=== PATIENT | male | born 1980 | race Caucasian/White ===

== ENCOUNTER 2017-05-27 14:55 | Inpatient (IN) | payer MEDICAID, OTHER ==
[~2017-05-27] VITALS: Ht 182.9 cm; Wt 73.1 kg
[~2017-05-27 14:55] MED LIST: AA/A14DR2 EACH EAR; ANTIBIOTIC; CEFP500T4 PO; CIPR500T78 PO; HYDR-1231 PO; IBUP800T26 PO; NAPR-243 PO; TRM50T PO
[2017-05-27] MEDS ORDERED: NS IV 1000 ML 1,000 ML IV ONE (16:13)
--- OUTSIDE RECORDS SUMMARY | 2017-05-27 16:18 | XMS REPORT ---
Author Author ZAYDA ROSE [facility] eClinicalWorks Address Unknown Phone Unavailable Care Team Providers Care Pedal Assembler Name Role Phone ZAYDA ROSE CP Unavailable Allergies No Known Allergies Problems Problem Type Condition ICD-9 Code Onset Dates Condition Status Problem Nondependent alcohol abuse, unspecified drunkenness 305.00 Active Problem Migraine, unspecified without mention of intractable migraine without mention of status migrainosus 346.90 Active Problem Depressive disorder, not elsewhere classified 311 Active Problem Unspecified part of closed fracture of clavicle 810.00 Active Problem Schizoaffective disorder, unspecified 295.70 Active Problem Unspecified orchitis and epididymitis 604.90 Active Problem Acute bronchitis 466.0 Active Problem Nondependent tobacco use disorder 305.1 Active Problem Combinations of drug dependence excluding opioid type drug, 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 Active Problem Contact dermatitis and other eczema due to solvents 692.2 Active Assessment No condition on axis III V71.09 Active Assessment Substance dependence 304.90 Active Assessment Substance abuse 305.90 Active Assessment No condition on [place] II V71.09 Active Problem Pain in joint, shoulder region 719.41 Active Assessment Generalized anxiety disorder 300.02 Active Problem Anxiety state, unspecified 300.00 Active Medications No Known Medications Procedures Procedure Coding System Code Date Psych diagnostic evaluation, new patient CPT-4 52343 Feb 21, 2015 Results No Known Results Summary Purpose eClinicalWorks Submission
--- OUTSIDE RECORDS SUMMARY | 2017-05-27 16:19 | XMS REPORT ---
Author Author DARLYN PIZARRO [facility] eClinicalWorks Address Unknown Phone Unavailable Care Team Providers Care Student Support Services Director Name Role Phone DARLYN PIZARRO CP Unavailable Allergies No Known Allergies Problems Problem Type Condition ICD-9 Code Onset Dates Condition Status Problem Nondependent alcohol abuse, unspecified drunkenness 305.00 Active Problem Migraine, unspecified without mention of intractable migraine without mention of status migrainosus 346.90 Active Problem Depressive disorder, not elsewhere classified 311 Active Problem Pain in joint, shoulder region 719.41 Active Problem Anxiety state, unspecified 300.00 Active Problem Unspecified part of closed fracture of clavicle 810.00 Active Problem Schizoaffective disorder, unspecified 295.70 Active Problem Unspecified orchitis and epididymitis 604.90 Active Problem Acute bronchitis 466.0 Active Problem Nondependent tobacco use disorder 305.1 Active Problem Combinations of drug dependence excluding opioid type drug, 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
--- OUTSIDE RECORDS SUMMARY | 2017-05-27 16:19 | XMS REPORT ---
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 Active Problem Anger R45.4 Active Assessment Conduct disorder, unspecified F91.9 Active Problem Tobacco abuse Z72.0 Active Problem Anxiety F41.9 Active Problem Unspecified orchitis and epididymitis 604.90 Active Problem Unspecified part of closed fracture of clavicle 810.00 Active Problem Hx of drug abuse Z87.898 Active Problem Alcohol abuse F10.10 Active Assessment Anxiety disorder F41.9 Active Problem Pain in joint, shoulder region 719.41 Active Assessment Impulse disorder, unspecified F63.9 Active Assessment Substance addiction F19.20 Active Problem Depressive disorder, not elsewhere classified 311 Active Problem Migraine, unspecified without mention of intractable migraine without mention of status migrainosus 346.90 Active Problem Anxiety state, unspecified 300.00 Active Problem Nondependent tobacco use disorder 305.1 Active Problem Nondependent alcohol abuse, unspecified drunkenness 305.00 Active Problem Acute bronchitis 466.0 Active Medications No Known Medications Procedures Procedure Coding System Code Date Psychotherapy, patient &/family, 30 minutes, established patient CPT-4 73825 Jul 04, 2015 Results No Known Results Summary Purpose eClinicalWorks Submission
--- OUTSIDE RECORDS SUMMARY | 2017-05-27 16:19 | XMS REPORT ---
Author Author DARLYN PIZARRO Organization eClinicalWorks Address Unknown Phone Unavailable Care Team Providers Care Community Outreach Coordinator Name Role Phone DARLYN PIZARRO CP Unavailable [...] eczema due to solvents 692.2 Active Medications No Known Medications Results No Known Results Summary Purpose eClinicalWorks Submission
--- OUTSIDE RECORDS SUMMARY | 2017-05-27 16:19 | XMS REPORT ---
Author Author DARLYN PIZARRO [facility] eClinicalWorks Address Unknown Phone Unavailable Care Team Providers Care Entry Level Project Engineer Name Role Phone DARLYN PIZARRO CP Unavailable Allergies, Adverse Reactions, Alerts Substance Reaction Event Type Penicillin V Potassium Info Not Available Drug Allergy Problems Problem Type Condition ICD-9 Code Onset [...] eczema due to solvents 692.2 Active Assessment Onychomycosis 110.1 Active Assessment Tinea barbae 110.0 Active Problem Pain in joint, shoulder region 719.41 Active Assessment High risk medication use V58.69 Active Problem Anxiety state, unspecified 300.00 Active Medications No Known Medications Procedures Procedure Coding System Code Date HEPATIC FUNCTION PANEL CPT-4 40400 Mar 21, 2015 VENIPUNCT, ROUTINE* CPT-4 20678 Mar 21, 2015 Office Visit, Est Pt., Level 3 CPT-4 16434 Mar 21, 2015 Vital Signs Date/Time: Mar 21, 2015 Temperature 98.0 F Weight 183.0 lbs Height 72 in BMI 24.82 Index Blood Pressure Diastolic 60 mmHg Blood Pressure Systolic 100 mmHg Cardiac Monitoring Heart Rate 90 bpm Results Name Result Date Reference Range Unit Abnormality Flag LIVER PANEL (LFT) ----ALT (SGPT) 52 [id number] 0-44 IU/L H ----AST (SGOT) 22 [id number] 0-40 IU/L ----Alkaline Phosphatase, S 62 [id number] 39-117 IU/L ----Protein, Total, Serum 7.0 20150321 6.0-8.5 g/dL ----Albumin, Serum 4.4 20150321 3.5-5.5 g/dL ----Bilirubin, Total <0.2 20150321 0.0-1.2 mg/dL ----Bilirubin, Direct 0.06 [id number] 0.00-0.40 mg/dL ROUTINE VENIPUNCTURE Summary Purpose eClinicalWorks Submission
--- OUTSIDE RECORDS SUMMARY | 2017-05-27 16:20 | XMS REPORT | Continuity of Care Document ---
Author Author [facility] Organization [facility] Address Unknown Phone Unavailable Allergies Active Description Code Type Severity Reaction Onset Reported/Identified Relationship to Patient Clinical Status Yes FISH FISH Moderate HIVES 11/29/2010 Yes Penicillins [id number] Drug Allergy Severe HIVES 11/29/2010 Yes codeine Drug Allergy N/A N/A 04/04/2011 Yes Penicillins Drug Allergy N/A N/A 04/04/2011 Medications Problems Date Dx Coded Attending Type Code Diagnosis Diagnosed By 04/04/2011 SHANNAN PENA APRN 382.9 Unspecified Otitis Media 04/04/2011 NASEEM LINDSAY APRN L 382.9 Unspecified Otitis Media 04/04/2011 SHAJI WOODARD DO 382.9 Unspecified Otitis Media 04/04/2011 NASEEM LINDSAY APRN L 382.9 Unspecified Otitis Media 04/04/2011 NASEEM LINDSAY APRN L 382.9 Unspecified Otitis Media 04/04/2011 KOMAL RUFFIN LCPC 382.9 Unspecified Otitis Media 04/04/2011 VIVI PHD, GABBY Caban 382.9 Unspecified Otitis Media 09/01/2011 SHANNAN PENA APRN 692.2 Contact Dermatitis Due To Solvents 09/01/2011 NASEEM LINDSAY APRN 692.2 Contact Dermatitis Due To Solvents 09/01/2011 SHAJI WOODARD DO 692.2 Contact Dermatitis Due To Solvents 09/01/2011 NASEEM LINDSAY APRN 692.2 Contact Dermatitis Due To Solvents 09/01/2011 NASEEM LINDSAY APRN 692.2 Contact Dermatitis Due To Solvents 09/01/2011 KOMAL RUFFIN LCPC 692.2 Contact Dermatitis Due To Solvents 09/01/2011 VIVI HSIEH, GABBY Caban 692.2 Contact Dermatitis Due To Solvents 04/01/2012 SHANNAN PENA APRN 305.1 TOBACCO ABUSE 04/01/2012 BECKY SOCIAL INSURANCE SPECIALIST, SHANNAN S 346.90 MIGRAINE HEADACHE 04/01/2012 BECKY SOCIAL INSURANCE SPECIALIST, SHANNAN S 466.0 ACUTE BRONCHITIS 04/01/2012 MADL SOCIAL INSURANCE SPECIALIST, NASEEM L 305.1 TOBACCO ABUSE 04/01/2012 MADL SOCIAL INSURANCE SPECIALIST, NASEEM L 346.90 MIGRAINE HEADACHE 04/01/2012 MADL SOCIAL INSURANCE SPECIALIST, NASEEM L 466.0 ACUTE BRONCHITIS 04/01/2012 WOODARD DO, SHAJI K 305.1 TOBACCO ABUSE 04/01/2012 WOODARD DO, SHAJI K 346.90 MIGRAINE HEADACHE 04/01/2012 WOODARD DO, SHAJI K 466.0 ACUTE BRONCHITIS 04/01/2012 MADL SOCIAL INSURANCE SPECIALIST, NASEEM L 305.1 TOBACCO ABUSE 04/01/2012 MADL SOCIAL INSURANCE SPECIALIST, NASEEM L 346.90 MIGRAINE HEADACHE 04/01/2012 MADL SOCIAL INSURANCE SPECIALIST, NASEEM L 466.0 ACUTE BRONCHITIS 04/01/2012 MADL SOCIAL INSURANCE SPECIALIST, NASEEM L 305.1 TOBACCO ABUSE 04/01/2012 MADL SOCIAL INSURANCE SPECIALIST, NASEEM L 346.90 MIGRAINE HEADACHE 04/01/2012 MADL SOCIAL INSURANCE SPECIALIST, NASEEM L 466.0 ACUTE BRONCHITIS 04/01/2012 KOMAL RUFFIN LCPC B 305.1 TOBACCO ABUSE 04/01/2012 KOMAL RUFFIN LCPC B 346.90 MIGRAINE HEADACHE 04/01/2012 KOMAL RUFFIN LCPC B 466.0 ACUTE BRONCHITIS 04/01/2012 VIVI PHD, GABBY Caban 305.1 TOBACCO ABUSE 04/01/2012 VIVI PHD, GABBY Caban 346.90 MIGRAINE HEADACHE 04/01/2012 VIVI PHD, GABBY Caban 466.0 ACUTE BRONCHITIS 07/20/2013 BECKY SOCIAL INSURANCE SPECIALIST, SHANNAN S 604.90 ORCHITIS AND EPIDIDYMITIS UNSPECIFIED 07/20/2013 MADL SOCIAL INSURANCE SPECIALIST, NASEEM L 604.90 ORCHITIS AND EPIDIDYMITIS UNSPECIFIED 07/20/2013 WOODARD DO, SHAJI K 604.90 ORCHITIS AND EPIDIDYMITIS UNSPECIFIED 07/20/2013 MADL SOCIAL INSURANCE SPECIALIST, NASEEM L 604.90 ORCHITIS AND EPIDIDYMITIS UNSPECIFIED 07/20/2013 MADL SOCIAL INSURANCE SPECIALIST, NASEEM L 604.90 ORCHITIS AND EPIDIDYMITIS UNSPECIFIED 07/20/2013 KOMAL RUFFIN LCPC B 604.90 ORCHITIS AND EPIDIDYMITIS UNSPECIFIED 07/20/2013 GABBY TRINIDAD PHD 604.90 ORCHITIS AND EPIDIDYMITIS UNSPECIFIED 01/19/2014 MAEVE LINDSAY APRNA L 810.00 CLOSED FRACTURE OF CLAVICLE UNSPECIFIED PART 01/19/2014 SHAJI WOODARD DO K 810.00 CLOSED FRACTURE OF CLAVICLE UNSPECIFIED PART 01/19/2014 ABDIFATAHL SOCIAL INSURANCE SPECIALIST, NASEEM L 810.00 CLOSED FRACTURE OF CLAVICLE UNSPECIFIED PART 01/19/2014 ABDIFATAHL SOCIAL INSURANCE SPECIALIST, NASEEM L 810.00 CLOSED FRACTURE OF CLAVICLE UNSPECIFIED PART 01/19/2014 KOMAL RUFFIN LCPC 810.00 CLOSED FRACTURE OF CLAVICLE UNSPECIFIED PART 01/19/2014 GABBY TRINIDAD PHD 810.00 CLOSED FRACTURE OF CLAVICLE UNSPECIFIED PART 04/07/2014 MAEVE LINDSAY APRNA L 719.41 PAIN IN JOINT INVOLVING SHOULDER REGION 04/07/2014 NASEEM LINDSAY APRN L 719.41 PAIN IN JOINT INVOLVING SHOULDER REGION 04/07/2014 KOMAL RUFFIN LCPC 719.41 PAIN IN JOINT INVOLVING SHOULDER REGION 04/07/2014 GABBY TRINIDAD PHD 719.41 PAIN IN JOINT INVOLVING SHOULDER REGION 06/02/2014 KOMAL RUFFIN LCPC 300.00 AN ANXIETY UNSPEC 06/02/2014 KOMAL RUFFIN LCPC 305.00 NONDEPENDENT ALCOHOL ABUSE UNSPECIFIED DRINKING BEHAVIOR 06/02/2014 KOMAL RUFFIN LCPC 311 DEPRESSIVE DISORDER NOS 06/02/2014 GABBY TRINIDAD PHD 300.00 AN ANXIETY UNSPEC 06/02/2014 GABBY TRINIDAD PHD 305.00 NONDEPENDENT ALCOHOL ABUSE UNSPECIFIED DRINKING BEHAVIOR 06/02/2014 GABBY TRINIDAD PHD 311 DEPRESSIVE DISORDER NOS 07/24/2014 GABBY TRINIDAD PHD 295.70 P SCHIZO AFFECTIVE 07/24/2014 GABBY TRINIDAD PHD 304.80 SA POLYSUB DEP Procedures Code Description [place] [address] UA W/ CULTURE IF INDICATED 07/20/2013 29672 XRAY CLAVICLE, LEFT 04/07/2014 83173 XRAY SHOULDER LEFT COMP 2 VIEWS 04/07/2014 ORTHOPEDI IBRAHIMA JEAN-BAPTISTE 04/07/2014 45597 PSYCH DIAGNOSTIC EVALUATION 06/05/2014 60865 PSYTX PT&/FAMILY 30 MINUTES 07/24/2014 Results Encounters ACCT No. Visit Date/Time Discharge Status Pt. Type Provider Facility Loc./Unit Complaint [id number] 01/10/2014 13:28:00 2013 13:40:00 DIS Emergency [id number] 01/07/2014 12:07:00 2013 12:28:00 DIS Emergency [id number] 09/17/2013 10:15:00 2013 23:59:59 CLS Outpatient [id number] 07/10/2013 17:14:00 2012 18:35:00 DIS Emergency [id number] 05/27/2017 14:59:00 ACT Emergency CASA TIJERINA , URVASHI [facility] ER BOTH HANDS PAIN/SWELLING [id number] 07/24/2014 07:56:00 07/24/2014 23: 59:59 CLS Outpatient VIVI HSIEH, GABBY Caban [id number] 06/02/2014 12:44:00 06/02/2014 23: 59:59 CLS Outpatient KOMAL RUFFIN LCPC [id number] 04/07/2014 13:37:00 04/07/2014 23: 59:59 CLS Outpatient NASEEM LINDSAY APRN [id number] 04/07/2014 13:37:00 04/07/2014 23: 59:59 CLS Outpatient NASEEM LINDSAY APRN [id number] 02/06/2014 17:21:00 02/06/2014 23: 59:59 CLS Outpatient SHAJI WOODARD DO [id number] 01/19/2014 11:22:00 01/19/2014 23: 59:59 CLS Outpatient NASEEM LINDSAY APRN [id number] 07/20/2013 13:11:00 07/20/2013 23: 59:59 CLS Outpatient SHANNAN PENA APRN
--- OUTSIDE RECORDS SUMMARY | 2017-05-27 16:20 | XMS REPORT ---
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 Problem Anger R45.4 Active Assessment Elevated liver enzymes R74.8 Active Problem Tobacco abuse Z72.0 Active Assessment Physical exam Z00.00 Active Assessment 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 Problem Anxiety F41.9 Active Problem Unspecified orchitis and epididymitis 604.90 Active Problem Unspecified part of closed fracture of clavicle 810.00 Active Problem Hx of drug abuse Z87.898 Active Problem Alcohol abuse F10.10 Active Assessment Anxiety state, unspecified 300.00 Active Problem Pain in joint, shoulder region 719.41 Active Assessment Tobacco abuse Z72.0 Active Assessment Depressive disorder, not elsewhere classified 311 Active Problem Depressive disorder, not elsewhere classified 311 Active Problem Migraine, unspecified without mention of intractable migraine without mention of status migrainosus 346.90 Active Problem Anxiety state, unspecified 300.00 Active Problem Nondependent tobacco use disorder 305.1 Active Problem Nondependent alcohol abuse, unspecified drunkenness 305.00 Active Problem Acute bronchitis 466.0 Active Medications Medication Code System Code Instructions Start Date End Date Status Dosage BusPIRone HCl [facility] [address]-58 10 MG Orally Once a day Jun 22, 2015 1 tablet Procedures Procedure Coding System Code Date Office Visit, Est Pt., Level 3 CPT-4 21568 Jul 24, 2015 Vital Signs Date/Time: Jul 24, 2015 Temperature 98.1 F Weight 196.3 lbs Height 72 in BMI 26.62 Index Blood Pressure Diastolic 60 mmHg Blood Pressure Systolic 118 mmHg Cardiac Monitoring Heart Rate 76 bpm Results No Known Results Summary Purpose eClinicalWorks Submission
--- OUTSIDE RECORDS SUMMARY | 2017-05-27 16:20 | XMS REPORT ---
Author Author ALEJANDRA VÁSQUEZ Organization eClinicalWorks Address Unknown Phone Unavailable Care Team Providers Care Surveyor Geophysical Prospecting Name Role Phone ALEJANDRA VÁSQUEZ Unavailable Allergies No Known Allergies Problems Problem Type Condition Code Onset Dates Condition Status Problem Nondependent [...]
--- OUTSIDE RECORDS SUMMARY | 2017-05-27 16:20 | XMS REPORT ---
Author Author RODRÍGUEZ MARSH eClinicalWorks Address Unknown Phone Unavailable Care Team Providers Care Assistant Elementary Teacher Name Role Phone RODRÍGUEZ MARSH CP Unavailable [...] 304.80 Active Problem Anger R45.4 Active Assessment Hx of drug abuse Z87.898 Active Problem Tobacco abuse Z72.0 Active Assessment Alcohol abuse F10.10 Active Problem Anxiety F41.9 Active Problem Unspecified orchitis and epididymitis 604.90 Active Problem Unspecified part of closed fracture of clavicle 810.00 Active Problem Hx of drug abuse Z87.898 Active Problem Alcohol abuse F10.10 Active Assessment Anxiety F41.9 Active Problem Pain in joint, shoulder region 719.41 Active Assessment Tobacco abuse Z72.0 Active Assessment Anger R45.4 Active Problem Depressive disorder, not elsewhere classified 311 Active Problem Migraine, unspecified without mention of intractable migraine without mention of status migrainosus 346.90 Active Problem Anxiety state, unspecified 300.00 Active Problem Nondependent tobacco use disorder 305.1 Active Problem Nondependent alcohol abuse, unspecified drunkenness 305.00 Active Problem Acute bronchitis 466.0 Active Medications Medication Code System Code Instructions Start Date End Date Status Dosage Clonidine HCl [facility] [address]-95 0.1 MG Orally Once a day Jun 22, 2015 1 tablet as needed for anxiety BusPIRone HCl [facility] [address]-50 5 MG Orally Twice a day Jun 22, 2015 1 tablet Procedures Procedure Coding System Code Date Office Visit, Est Pt., Level 3 CPT-4 73610 Jun 22, 2015 Vital Signs Date/Time: Jun 22, 2015 Temperature 98.2 F Weight 189.2 lbs Height 72 in BMI 25.66 Index Blood Pressure Diastolic 72 mmHg Blood Pressure Systolic 122 mmHg Cardiac Monitoring Heart Rate 76 bpm Results No Known Results Summary Purpose eClinicalWorks Submission
--- OUTSIDE RECORDS SUMMARY | 2017-05-27 16:20 | XMS REPORT ---
Author Author ZAYDA ROSE [facility] eClinicalWorks Address Unknown Phone Unavailable Care Team Providers Care Power Shovel Engineer Name Role Phone ZAYDA ROSE CP Unavailable [...] abuse 304.80 Active Problem Anger R45.4 Active Problem Tobacco abuse Z72.0 Active Problem Anxiety F41.9 Active Problem Unspecified orchitis and epididymitis 604.90 Active Problem Unspecified part of closed fracture of clavicle 810.00 Active Problem Hx of drug abuse Z87.898 Active Problem Alcohol abuse F10.10 Active Assessment Social anxiety disorder F40.10 Active Problem Pain in joint, shoulder region 719.41 Active Assessment Substance abuse F19.10 Active Assessment Generalized anxiety disorder F41.1 Active Problem Depressive disorder, not elsewhere classified 311 Active Problem Migraine, unspecified without mention of intractable migraine without mention of status migrainosus 346.90 Active Problem Anxiety state, unspecified 300.00 Active Problem Nondependent tobacco use disorder 305.1 Active Problem Nondependent alcohol abuse, unspecified drunkenness 305.00 Active Problem Acute bronchitis 466.0 Active Medications No Known Medications Procedures Procedure Coding System Code Date Psychotherapy, patient &/family, 45 minutes, established patient CPT-4 25974 Jun 22, 2015 Results No Known Results Summary Purpose eClinicalWorks Submission
[2017-05-27 16:21] LABS: BASOPHILS % (AUTO) 0 % (0-10); EOSINOPHILS # (AUTO) 0.2 10^3/uL (0.0-0.3); EOSINOPHILS % (AUTO) 1 % (0-10); LYMPHOCYTES # (AUTO) 1.7 X 10^3 (1.0-4.0); LYMPHOCYTES % (AUTO) 14 % (12-44); MEAN CORPUSCULAR HEMOGLOBIN 32 PG (25-34); MEAN CORPUSCULAR HGB CONC 34 G/DL (32-36); MEAN CORPUSCULAR VOLUME 94 FL (80-99); MEAN PLATELET VOLUME 9.6 FL (7.4-10.4); MONOCYTES % (AUTO) 8 % (0-12); NEUTROPHILS # (AUTO) 9.1 X 10^3 (1.8-7.8); NEUTROPHILS % (AUTO) 76 % (42-75); PLATELET COUNT 247 10^3/uL (130-400); RED BLOOD COUNT 3.88 10^6/uL (4.35-5.85); RED CELL DISTRIBUTION WIDTH 13.9 % (10.0-14.5)
[2017-05-27 16:39] LABS: ALANINE AMINOTRANSFERASE 41 U/L (0-55); ALCOHOL < 10 MG/DL (<10); ANION GAP 8 MMOL/L (5-14); ASPARTATE AMINO TRANSFERASE 33 U/L (5-34); BILIRUBIN,TOTAL 0.8 MG/DL (0.1-1.0); BLOOD UREA NITROGEN 11 MG/DL (7-18); BUN/CREATININE RATIO 15; CARBON DIOXIDE 23 MMOL/L (21-32); CHLORIDE 105 MMOL/L (98-107); CREATININE SERUM 0.75 MG/DL (0.60-1.30); GFR ESTIMATED > 60; GLUCOSE 105 MG/DL (70-105); POTASSIUM 3.7 MMOL/L (3.6-5.0); SODIUM 136 MMOL/L (135-145); TOTAL PROTEIN 7.4 GM/DL (6.4-8.2)
[2017-05-27] MEDS ORDERED: ACETAMINOPHEN 500 MG TAB (TYLENOL) PO ONE (17:00)
--- NOTE | 2017-05-27 17:08 | Diagnostic Imaging Report ---
Portable upright radiograph of the chest. INDICATION: Bilateral hand pain. Malaise. Shortness of breath. FINDINGS: The lungs are clear. The heart size is normal. No effusion or pneumothorax. The mediastinum and kodi appear unremarkable. IMPRESSION: Unremarkable exam. Dictated by: Dictated on workstation # [id number]
[2017-05-27 17:18] LABS: BILIRUBIN,URINE NEGATIVE (NEGATIVE); KETONES,URINE NEGATIVE (NEGATIVE); LEUKOCYTE ESTERASE ,URINE 1+ (NEGATIVE); NITRITE,URINE NEGATIVE (NEGATIVE); PH,URINE 5 (5-9); PROTEIN,URINE 1+ (NEGATIVE); UROBILINOGEN,URINE NORMAL (NORMAL)
[2017-05-27 17:28] LABS: CALCIUM OXALATE CRYSTALS,UR LARGE /LPF; WBC,URINE 0-2 /HPF
--- NOTE | 2017-05-27 17:38 | ED General ---
General Chief Complaint: Fever-Adult/Adol Stated Complaint: BOTH HANDS PAIN/SWELLING Nursing Triage Note: PT BROUGHT IN AFTER [employer] FOUND HIM OUTSIDE LOCAL [facility] STORE FOR SEVERAL HOURS. PT REPORTS BILATERAL HAND PAIN. PT ALSO REPORTS SHAKINESS AND MALAISE. PT APPEARS CONFUSED. Nursing Sepsis Screen: No Definite Risk Source of Information: Patient, Other (bystanders) Exam Limitations: No Limitations (URVASHI CORMIER MD) History of Present Illness Time Seen by Provider: 16:10 Initial Comments This 36 year old man presents to the emergency room with altered mental status. He was found by bystanders outside a local business unable to care for himself and not speaking clearly. He was found to be febrile on assessment. The bystanders reported he was presumed to be homeless. They reported bike he normally uses to get around with was non-functional. They felt he could not care for himself in his current state and brought him to the ER. Patient denies any alcohol use and is unclear about drug use. He mumbles incoherently most of the time. He is easily agitated by noise or tactile stimulation. He states he's been feeling "cold for a while". He states he has been coughing. He is febrile on assessment. (URVASHI CORMIER MD) Allergies and Home Medications Allergies Coded Allergies: Penicillins (Unverified Allergy, Severe, HIVES, 11/29/10) Uncoded Allergies: FISH (Allergy, Intermediate, HIVES, 11/29/10) Home Medications Hydrocodone Bit/Acetaminophen 1 Tab Tablet, 1 TAB PO Q6H PRN for PAIN, #10 Prescribed by: SABINE PONCE on 01/10/14 1337 Ibuprofen 800 Mg Tablet, 800 MG PO Q8H PRN for PAIN, #20 Prescribed by: URVASHI ROBLES on 07/10/13 1825 Naproxen 500 Mg Tablet, 1 EACH PO BID PRN for PAIN, #20 FOR PAIN Prescribed by: SABINE PONCE on 01/07/14 1239 Naproxen 500 Mg Tablet, 1 EACH PO BID PRN for PAIN, #20 FOR PAIN Prescribed by: SABINE PONCE on 01/10/14 1337 Tramadol Hcl 50 Mg Tab, 50 MG PO Q4-6HR PRN for PAIN, #20 FOR PAIN Prescribed by: SABINE PONCE on 01/07/14 1239 Constitutional: see HPI EENTM: no symptoms reported Respiratory: see HPI Cardiovascular: no symptoms reported Gastrointestinal: no symptoms reported Genitourinary: no symptoms reported Musculoskeletal: no symptoms reported Skin: no symptoms reported Psychiatric/Neurological: See HPI Hematologic/Lymphatic: No Symptoms Reported Immunological/Allergic: no symptoms reported (URVASHI CORMIER MD) Past Fwvgvws-Vzwees-Zhumsa Hx Patient Social History Alcohol Use: Occasionally Uses Recreational Drug Use: Yes Drug of Choice: METH, MARJUANA Smoking Status: Current Everyday Smoker Type Used: Cigarettes Recent Foreign Travel: No Contact w/Someone Who Travel: No Recent Infectious Disease Expo: No Physical Abuse: No Sexual Abuse: No Mistreated: No Fear: No (URVASHI CORMIER MD) Surgeries History of Surgeries: No (URVASHI CORMIER MD) Respiratory History of Respiratory Disorde: No (URVASHI CORMIER MD) Cardiovascular History of Cardiac Disorders: No (URVASHI CORMIER MD) Neurological History of Neurological Disord: No (URVASHI CORMIER MD) Genitourinary History of Genitourinary Disor: No (URVSAHI CORMIER MD) Gastrointestinal History of Gastrointestinal Di: No (URVASHI CORMIER MD) Musculoskeletal History of Musculoskeletal Dis: No (URVASHI CORMIER MD) Endocrine History of Endocrine Disorders: No (URVASHI CORMIER MD) HEENT History of HEENT Disorders: No (URVASHI CORMIER MD) Cancer History of Cancer: No (URVASHI CORMIER MD) Psychosocial History of Psychiatric Problem: No Suicide Risk Score: 1 (URVASHI CORMIER MD) Integumentary History of Skin or Integumenta: No (URVASHI CORMIER MD) Blood Transfusions History of Blood Disorders: No (URVASHI CORMIER MD) Family Medical History Significant Family History: Cancer (URVASHI CORMIER MD) Physical Exam Vital Signs Vital Sign - Last 12Hours 05/27/17 16:13 Temp 101.9 Pulse 78 Resp 20 B/P (MAP) 123/77 Pulse Ox 97 (FARNAZBEE J) Vital Signs Capillary Refill : Less Than 3 Seconds (URVASHI CORMIER MD) General Appearance: WD/WN, Anxious, Mild Distress, Other (disheveled, easily agitated) HEENT: PERRL/EOMI, Normal ENT Inspection Neck: Normal Inspection Respiratory: Lungs Clear, Normal Breath Sounds, No Accessory Muscle Use, No Respiratory Distress Cardiovascular: Regular Rate, Rhythm, No Edema, No Murmur Gastrointestinal: Normal Bowel Sounds, Non Tender, Soft Extremity: Normal Inspection, No Pedal Edema, Other (abrasion, swelling, and tenderness to the right hand.) Neurologic/Psychiatric: Alert, [employer]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 Norm as Tested, Other (jittery, mumbling, disoriented, easily agitated with noises and tactile stimulus) Skin: Normal Color, Warm/Dry (URVASHI CORMIER MD) Focused Exam Evaluation Lactate Level Laboratory Tests 05/27/17 16:04: Lactic Acid Level 0.72 (BEE OSEI) Lactic Acid Level Laboratory Tests Test 05/27/17 16:04 Lactic Acid Level 0.72 MMOL/L (0.50-2.00) (BEE OSEI) Progress/Results/Core Measures Suspected Sepsis Recent Fever Within 48 Hours: Yes Infection Criteria Present: Suspected New Infection New/Unexplained Altered Menta: Yes Sepsis Screen: No Definite Risk Sepsis Diagnosis: SIRS Temperature:101.9 Pulse: 78 Respiratory Rate: 20 Laboratory Tests 05/27/17 16:04: White Blood Count 12.0H Blood Pressure 123 /77 Mean: 92 Laboratory Tests 05/27/17 16:04: Lactic Acid Level 0.72 Laboratory Tests 05/27/17 16:04: Creatinine 0.75, Platelet Count 247, Total Bilirubin 0.8 (URVASHI CORMIER MD) Results/Orders Lab Results Laboratory Tests Test 05/27/17 16:04 05/27/17 17:11 Range/Units White Blood Count 12.0 H 4.3-11.0 10^3/uL Red Blood Count 3.88 L 4.35-5.85 10^6/uL Hemoglobin 12.5 L 13.3-17.7 G/DL Hematocrit 37 L 40-54 % Mean Corpuscular Volume 94 80-99 FL Mean Corpuscular Hemoglobin 32 25-34 PG Mean Corpuscular Hemoglobin Concent 34 32-36 G/DL Red Cell Distribution Width 13.9 10.0-14.5 % Platelet Count 247 130-400 10^3/uL Mean Platelet Volume 9.6 7.4-10.4 FL Neutrophils (%) (Auto) 76 H 42-75 % Lymphocytes (%) (Auto) 14 12-44 % Monocytes (%) (Auto) 8 0-12 % Eosinophils (%) (Auto) 1 0-10 % Basophils (%) (Auto) 0 0-10 % Neutrophils # (Auto) 9.1 H 1.8-7.8 X 10^3 Lymphocytes # (Auto) 1.7 1.0-4.0 X 10^3 Monocytes # (Auto) 1.0 0.0-1.0 X 10^3 Eosinophils # (Auto) 0.2 0.0-0.3 10^3/uL Basophils # (Auto) 0.0 0.0-0.1 10^3/uL Sodium Level 136 135-145 MMOL/L Potassium Level 3.7 3.6-5.0 MMOL/L Chloride Level 105 98-107 MMOL/L Carbon Dioxide Level 23 21-32 MMOL/L Anion Gap 8 5-14 MMOL/L Blood Urea Nitrogen 11 7-18 MG/DL Creatinine 0.75 0.60-1.30 MG/DL Estimat Glomerular Filtration Rate > 60 BUN/Creatinine Ratio 15 Glucose Level 105 70-105 MG/DL Lactic Acid Level 0.72 0.50-2.00 MMOL/L Calcium Level 9.0 8.5-10.1 MG/DL Total Bilirubin 0.8 0.1-1.0 MG/DL Aspartate Amino Transf (AST/SGOT) 33 5-34 U/L Alanine Aminotransferase (ALT/SGPT) 41 0-55 U/L Alkaline Phosphatase 57 40-136 U/L C-Reactive Protein High Sensitivity 1.80 H 0.00-0.50 MG/DL Total Protein 7.4 6.4-8.2 GM/DL Albumin 4.0 3.2-4.5 GM/DL Serum Alcohol < 10 <10 MG/DL Urine Color YELLOW Urine Clarity CLEAR Urine pH 5 5-9 Urine Specific [place] 1.025 H 1.016-1.022 Urine Protein 1+ H NEGATIVE Urine Glucose (UA) NEGATIVE NEGATIVE Urine Ketones NEGATIVE NEGATIVE Urine Nitrite NEGATIVE NEGATIVE Urine Bilirubin NEGATIVE NEGATIVE Urine Urobilinogen NORMAL NORMAL MG/DL Urine Leukocyte Esterase 1+ H NEGATIVE Urine RBC (Auto) NEGATIVE NEGATIVE Urine RBC NONE /HPF Urine WBC 0-2 /HPF Urine Crystals PRESENT H /LPF Urine Calcium Oxalate Crystals LARGE H /LPF Urine Bacteria NEGATIVE /HPF Urine Casts NONE /LPF Urine Mucus NEGATIVE /LPF Urine Culture Indicated NO Urine Opiates Screen NEGATIVE NEGATIVE Urine Oxycodone Screen NEGATIVE NEGATIVE Urine Methadone Screen NEGATIVE NEGATIVE Urine Propoxyphene Screen NEGATIVE NEGATIVE Urine Barbiturates Screen NEGATIVE NEGATIVE Ur Tricyclic Antidepressants Screen NEGATIVE NEGATIVE Urine Phencyclidine Screen NEGATIVE NEGATIVE Urine Amphetamines Screen POSITIVE H NEGATIVE Urine Methamphetamines Screen POSITIVE H NEGATIVE Urine Benzodiazepines Screen NEGATIVE NEGATIVE Urine Cocaine Screen NEGATIVE NEGATIVE Urine Cannabinoids Screen POSITIVE H NEGATIVE (BEE OSEI) Micro Results Microbiology 05/27/17 Influenza Types A,B Antigen (MILTON) - Final, Complete (BEE OSEI) Medications Given in ED Current Medications Medications Dose Ordered Sig/Sunny Route Start Time Stop Time Status Last Admin Dose Admin Acetaminophen 1,000 mg ONCE ONCE PO 05/27/17 17:00 05/27/17 17:01 DC 05/27/17 17:17 1,000 MG Clindamycin Phosphate 900 mg/ Sodium Chloride 56 ml @ 100 mls/hr ONCE ONCE IV 05/27/17 18:30 05/27/17 19:03 DC 05/27/17 18:53 100 MLS/HR Sodium Chloride 1,000 ml @ 0 mls/hr Q0M ONCE IV 05/27/17 16:13 05/27/17 16:16 DC 05/27/17 17:14 0 MLS/HR (BEE OSEI) Vital Signs/I&O Vital Sign - Last 12Hours 05/27/17 16:13 Temp 101.9 Pulse 78 Resp 20 B/P (MAP) 123/77 Pulse Ox 97 (BEE OSEI) Vital Signs/I&O Capillary Refill : Less Than 3 Seconds (URVASHI CORMIER MD) Blood Pressure Mean: 92 Progress Note #1: Time: 17:40 Progress Note Patient has received a liter of IV fluids. He also received Tylenol for fever. No source of infection has been found. Perhaps when he is more coherent a repeat examination will be more fruitful. Progress Note #2: Time: 17:49 Progress Note Patient's mental status will not allow for discharge at this time. Patient will be allowed to rest in the ER. Admission is not possible at this time due to lack of beds. Care of this patient was transitioned to Dr. Osei at this time. Abrasion and swelling of the right hand noted. This area appears tender. There is serosanguineous drainage from the abrasion. X-ray will be ordered. Progress Note #3: Time: 18:22 Progress Note After further discussion with Dr. Osei, we decided that empiric antibiotic therapy is most appropriate in this situation. Patient does have some swelling around the skin wound on the hand. X-rays show no obvious fractures. Since patient is under the influence of methamphetamines, injection could be a source of sepsis. Patient will be empirically treated with vancomycin and clindamycin after the second blood culture is drawn. (URVASHI CORMIER MD) Progress Note : Time: 19:07 Progress Note Patient does not give much history but we have assumed care at shift change from Dr. Robles. Patient's hand and x-ray could be consistent with osteomyelitis however we do not have MRI at this time. Patient is acutely delirious probably secondary to amphetamine use we will hold onto him in the hospital and plan to get imaging in the morning. He has been covered with clindamycin and vancomycin which should adequately prevent him from becoming septic or worsening. There is the possibility of fever and white count being directly due to the amphetamines alone. (BEE OSEI) Diagnostic Imaging Diagonstic Imaging: Xray Plain Films/CT/US/NM/MRI: chest Comments Chest x-ray viewed by me and report reviewed. See report below: NAME: LOLIS VALENC[facility] REC#: [id number] PT STATUS: REG ER : 1980 PHYSICIAN: URVASHI CORMIER MD ADMIT DATE: 05/27/17/ER Draft Date of Exam:05/27/17 CHEST 1 VIEW, AP/PA ONLY Portable upright radiograph of the chest. INDICATION: Bilateral hand pain. Malaise. Shortness of breath. FINDINGS: The lungs are clear. The heart size is normal. No effusion or pneumothorax. The mediastinum and kodi appear unremarkable. IMPRESSION: Unremarkable exam. Dictated on workstation # [id number] Dict: 05/27/17 170 Trans: 05/27/17 170 [id number] Interpreted by: BLAKE ALONSO MD (URVASHI CORMIER MD) Diagonstic Imaging: Xray Plain Films/CT/US/NM/MRI: hand (right) Comments VIA [facility] [place], [place] NAME: LOLIS VALENCIA [facility] REC#: [id number] PT STATUS: REG ER : 1980 PHYSICIAN: URVASHI CORMIER MD ADMIT DATE: 05/27/17/ER Draft Date of Exam:05/27/17 HAND, RIGHT, 3 VIEWS INDICATION: Right hand swelling, unknown injury. TECHNIQUE: Three views of the right hand. CORRELATION STUDY: None. FINDINGS: There is abnormal appearance, best appreciated on the lateral projection, of what appears to be the distal interphalangeal joint of the ring finger. Some erosive type changes are suggested. Additionally, there is asymmetric soft tissue swelling in this region. Remaining osseous structures demonstrate mild degenerative changes through the interphalangeal joints but are otherwise maintained. Carpal metacarpal articulations appear unremarkable. IMPRESSION: There appear be some destructive changes about the distal interphalangeal joint of likely the ring finger with associated soft tissue swelling. Given the overall appearance, the possibility of underlying osteomyelitis would be difficult to exclude. Correlation with findings. Dictated on workstation # [id number] Dict: 05/27/171812 Trans: 05/27/17 1826 [facility] [phone] Interpreted by: HERMELINDA LEYVA DO Electronically signed by: Reviewed: Reviewed by Me (BEE OSEI) Transfer of Care Transfer of Care Time: 18:00 Care transferred to: Farnaz (BEE OSEI) Departure Communication (Admissions) Time/Spoke to Admitting Phy: 19:[address] Hathaway is okay to put the patient on ICU keep from going on the antibiotics and will see him. She would like held all 5 mg and Ativan 2 mg when necessary agitation. She is okay with maintenance IV fluids. (BEE OSEI) Impression Impression: Primary Impression: Sepsis Qualified Codes: A41.9 - Sepsis, unspecified organism Additional Impressions: Febrile illness Methamphetamine abuse Altered mental status Qualified Codes: R41.0 - Disorientation, unspecified Osteomyelitis of hand, acute Disposition: 09 ADMITTED INPATIENT Condition: Stable Admissions Decision to Admit Reason: Admit from ER (General) Decision to Admit/Date: May 27, 2017 Time/Decision to Admit Time: 19:23 (BEE OSEI) Departure-Patient Inst. Referrals: [facility] (PCP/Family) Primary Care Physician Copy Copies To 1: SHAJI WOODARD JOSHUA T MD May 27, 2017 17:38 BEE OSEI May 27, 2017 19:08
--- NOTE | 2017-05-27 18:27 | Diagnostic Imaging Report ---
INDICATION: Right hand swelling, unknown injury. TECHNIQUE: Three views of the right hand. CORRELATION STUDY: None. FINDINGS: There is abnormal appearance, best appreciated on the lateral projection, of what appears to be the distal interphalangeal joint of the ring finger. Some erosive type changes are suggested. Additionally, there is asymmetric soft tissue swelling in this region. Remaining osseous structures demonstrate mild degenerative changes through the interphalangeal joints but are otherwise maintained. Carpal metacarpal articulations appear unremarkable. IMPRESSION: There appear be some destructive changes about the distal interphalangeal joint of likely the ring finger with associated soft tissue swelling. Given the overall appearance, the possibility of underlying osteomyelitis would be difficult to exclude. Correlation with findings. Dictated by: Dictated on workstation # [id number]
[2017-05-27] MEDS ORDERED: VANCOMYCIN INJECTION 1,000 MG in NS (IVPB) 250 ML IV ONE (18:30)
[2017-05-27] MEDS ORDERED: CLINDAMYCIN INJECTION 900 MG in NS (IVPB) 50 ML IV ONE (18:30)
[2017-05-27 21:30] VITALS: BP 120/79
[2017-05-27] MEDS ORDERED: HALOPERIDOL 5 MG/ML (HALDOL) AMP IM PRN (21:45)
[2017-05-27] MEDS ORDERED: ACETAMINOPHEN 500 MG TAB (TYLENOL) PO PRN (21:45)
[2017-05-27] MEDS ORDERED: IBUPROFEN 800 MG (MOTRIN) TAB PO PRN (21:45)
[2017-05-27] MEDS ORDERED: LORazepam INJ 2 MG/ML (ATIVAN) VIAL IV PRN (21:45)
[2017-05-27] MEDS ORDERED: ONDANSETRON 4 MG/2 ML (SDV) Z0FRAN IV PRN (21:45)
[2017-05-27 22:00] VITALS: BP 116/72
[2017-05-27] MEDS: NS IV 1000 ML 1,000 ML IV SCH (22:43)
[2017-05-27] MEDS: CATHETER FLUSH 10 ML SYR IV SCH (22:46)
[2017-05-27 23:00] VITALS: BP 121/73
[2017-05-27] MEDS: CLINDAMYCIN 600 MG/NS 50 ML IVPB IV SCH ×2 (23:31)
[2017-05-28] VITALS (14 sets, daily range): BP systolic 112–139; BP diastolic 60–93
[2017-05-28 04:52] LABS: BASOPHILS % (AUTO) 0 % (0-10); EOSINOPHILS # (AUTO) 0.1 10^3/uL (0.0-0.3); EOSINOPHILS % (AUTO) 1 % (0-10); LYMPHOCYTES # (AUTO) 1.9 X 10^3 (1.0-4.0); LYMPHOCYTES % (AUTO) 16 % (12-44); MEAN CORPUSCULAR HEMOGLOBIN 32 PG (25-34); MEAN CORPUSCULAR HGB CONC 34 G/DL (32-36); MEAN CORPUSCULAR VOLUME 95 FL (80-99); MEAN PLATELET VOLUME 9.1 FL (7.4-10.4); MONOCYTES # (AUTO) 1.1 X 10^3 (0.0-1.0); MONOCYTES % (AUTO) 9 % (0-12); NEUTROPHILS # (AUTO) 8.4 X 10^3 (1.8-7.8); NEUTROPHILS % (AUTO) 73 % (42-75); PLATELET COUNT 240 10^3/uL (130-400); RED BLOOD COUNT 4.01 10^6/uL (4.35-5.85); WHITE BLOOD COUNT 11.6 10^3/uL (4.3-11.0)
[2017-05-28 05:17] LABS: ALANINE AMINOTRANSFERASE 33 U/L (0-55); ALBUMIN 3.5 GM/DL (3.2-4.5); ANION GAP 8 MMOL/L (5-14); ASPARTATE AMINO TRANSFERASE 27 U/L (5-34); BILIRUBIN,TOTAL 0.8 MG/DL (0.1-1.0); BLOOD UREA NITROGEN 11 MG/DL (7-18); BUN/CREATININE RATIO 15; CALCIUM 8.4 MG/DL (8.5-10.1); CARBON DIOXIDE 22 MMOL/L (21-32); CHLORIDE 105 MMOL/L (98-107); CREATININE SERUM 0.73 MG/DL (0.60-1.30); GFR ESTIMATED > 60; GLUCOSE 118 MG/DL (70-105); PHOSPHORUS 2.1 MG/DL (2.3-4.7); POTASSIUM 3.3 MMOL/L (3.6-5.0); SODIUM 135 MMOL/L (135-145); TOTAL PROTEIN 6.7 GM/DL (6.4-8.2)
[2017-05-28] MEDS: CATHETER FLUSH 10 ML SYR IV SCH ×3 (05:23→22:12)
[2017-05-28] MEDS: CLINDAMYCIN 600 MG/NS 50 ML IVPB IV SCH ×6 (05:23→18:51)
[2017-05-28] MEDS: NS IV 1000 ML 1,000 ML IV SCH ×3 (06:25→22:15)
[2017-05-28] MEDS ORDERED: VANCOMYCIN 1 GM/NS 250 ML IVPB IV SCH ×2 (06:30)
[2017-05-28] MEDS ORDERED: KCL 20 MEQ TAB (K-DUR) PO ONE (06:35)
[2017-05-28] MEDS ORDERED: KCL 20 MEQ TAB (K-DUR) PO NR ×2 (06:42→09:00)
[2017-05-28] MEDS ORDERED: VANCOMYCIN 750 MG/NS 250 ML IVPB IV NR ×2 (06:55)
[2017-05-28] MEDS ORDERED: INFLUENZA TRIvalent 2017-2018 0.5 ML/45 MCG SYR IM ONE (07:15)
--- NOTE | 2017-05-28 09:22 | Diagnostic Imaging Report ---
INDICATION: Overdose COMPARISON: 05/27/2017 FINDINGS: Single view chest demonstrate clear lungs bilaterally. The heart is normal. No pneumothorax. The osseous structures normal. IMPRESSION: Negative chest. Dictated by: Dictated on workstation # [id number]
[2017-05-28] MEDS ORDERED: GADOBUTROL 7.5 MMOL/7.5 ML (GADAVIST) VIAL IV ONE (09:30)
--- NOTE | 2017-05-28 10:57 | Diagnostic Imaging Report ---
PROCEDURE: MRI right upper extremity with and without contrast. TECHNIQUE: Multiplanar, multisequence pre and post contrast-enhanced MRI of the right upper extremity was accomplished. INDICATION: Pain and swelling in the right hand. Possible osteomyelitis of the ring finger. 7 mL of Gadavist was administered intravenously. FINDINGS: There is abnormal marrow signal around the distal interphalangeal joint of the right ring finger centered around the distal interphalangeal joint. This is compatible with septic arthritis. There is suggestion of erosions of the articular surface. The bone marrow edema and enhancement in the marrow around the joint involving the proximal two thirds of the distal phalanx and the distal one third of the middle phalanx of this finger are suggestive of osteomyelitis involvement. There are no soft tissue abscesses seen. Other osseous structures in the hand demonstrate no definite abnormality. The small muscles of the hand and tendons appear grossly unremarkable. IMPRESSION: Findings suggestive of septic arthritis of the distal interphalangeal joint of the right ring finger with infection involving the distal one third of the middle phalanx and proximal two thirds of the distal phalanx around this joint. The findings were discussed with Dr. Hathaway at time of dictation. Dictated by: Dictated on workstation # [id number]
[2017-05-28] MEDS: cefTRIAXone INJECTION 1,000 MG in NS (IVPB) 50 ML IV SCH (11:25)
--- NOTE | 2017-05-28 18:31 | History & Physicial (CHS) ---
HPI History of Present Illness: 36 yo male brought to ER with altered mental status. He awakens to answer questions this morning, but his answers are not all logical. He states he was brought to the hospital, but doesn't recall why and believes he was brought by the "mayor and his environmental lawyer". He does admit to substance use including methamphetamine a "couple of days ago" and injection use in his left forearm, but states he has not injected in his hand where he does have a swollen, sore wound. He does state he is not interested in rehab because "it ruins his life". When asked about his home, he states he has no home, but also can't remember where he has been staying. Source: patient Exam Limitations: clinical condition Date seen by provider: May 28, 2017 Time Seen by Provider: 08:10 Attending Physician Jyoti Hathaway MD PCP Jf,[facility] Consult Date of Admission May 27, 2017 at 20:04 Home Medications Home Medications Reviewed patient Home Medication Reconciliation Form Allergies Coded Allergies: Penicillins (Unverified Allergy, Severe, HIVES, 11/29/10) fish derived (Unverified Allergy, Intermediate, HIVES, 05/28/17) FROM UNCODED ALLERGIES [id number] Hx Patient Social History Alcohol Use: Occasionally Uses Recreational Drug Use: Yes Drug of Choice: METH, MARJUANA Smoking Status: Current Everyday Smoker Type Used: Cigarettes Recent Foreign Travel: No Contact w/other who traveled: No Recent Hopitalizations: No Recent Infectious Disease Expo: No Physical Abuse Screen: No Sexual Abuse: No Past Medical History PMHx: Substance abuse Family Medical History Significant Family History: Cancer Review of Systems (CHC) Constitutional: other (unable to obtain due to patient condition/lethargy) Reviewed Test Results Reviewed Test Results Lab Laboratory Tests Test 05/27/17 16:04 05/27/17 17:11 05/28/17 04:25 Range/Units White Blood Count 12.0 H 11.6 H 4.3-11.0 10^3/uL Red Blood Count 3.88 L 4.01 L 4.35-5.85 10^6/uL Hemoglobin 12.5 L 13.0 L 13.3-17.7 G/DL Hematocrit 37 L 38 L 40-54 % Mean Corpuscular Volume 94 95 80-99 FL Mean Corpuscular Hemoglobin 32 32 25-34 PG Mean Corpuscular Hemoglobin Concent 34 34 32-36 G/DL Red Cell Distribution Width 13.9 14.0 10.0-14.5 % Platelet Count 247 240 130-400 10^3/uL Mean Platelet Volume 9.6 9.1 7.4-10.4 FL Neutrophils (%) (Auto) 76 H 73 42-75 % Lymphocytes (%) (Auto) 14 16 12-44 % Monocytes (%) (Auto) 8 9 0-12 % Eosinophils (%) (Auto) 1 1 0-10 % Basophils (%) (Auto) 0 0 0-10 % Neutrophils # (Auto) 9.1 H 8.4 H 1.8-7.8 X 10^3 Lymphocytes # (Auto) 1.7 1.9 1.0-4.0 X 10^3 Monocytes # (Auto) 1.0 1.1 H 0.0-1.0 X 10^3 Eosinophils # (Auto) 0.2 0.1 0.0-0.3 10^3/uL Basophils # (Auto) 0.0 0.0 0.0-0.1 10^3/uL Sodium Level 136 135 135-145 MMOL/L Potassium Level 3.7 3.3 L 3.6-5.0 MMOL/L Chloride Level 105 105 98-107 MMOL/L Carbon Dioxide Level 23 22 21-32 MMOL/L Anion Gap 8 8 5-14 MMOL/L Blood Urea Nitrogen 11 11 7-18 MG/DL Creatinine 0.75 0.73 0.60-1.30 MG/DL Estimat Glomerular Filtration Rate > 60 > 60 BUN/Creatinine Ratio 15 15 Glucose Level 105 118 H 70-105 MG/DL Lactic Acid Level 0.72 0.50-2.00 MMOL/L Calcium Level 9.0 8.4 L 8.5-10.1 MG/DL Total Bilirubin 0.8 0.8 0.1-1.0 MG/DL Aspartate Amino Transf (AST/SGOT) 33 27 5-34 U/L Alanine Aminotransferase (ALT/SGPT) 41 33 0-55 U/L Alkaline Phosphatase 57 57 40-136 U/L C-Reactive Protein High Sensitivity 1.80 H 0.00-0.50 MG/DL Total Protein 7.4 6.7 6.4-8.2 GM/DL Albumin 4.0 3.5 3.2-4.5 GM/DL Serum Alcohol < 10 <10 MG/DL Urine Color YELLOW Urine Clarity CLEAR Urine pH 5 5-9 Urine Specific [place] 1.025 H 1.016-1.022 Urine Protein 1+ H NEGATIVE Urine Glucose (UA) NEGATIVE NEGATIVE Urine Ketones NEGATIVE NEGATIVE Urine Nitrite NEGATIVE NEGATIVE Urine Bilirubin NEGATIVE NEGATIVE Urine Urobilinogen NORMAL NORMAL MG/DL Urine Leukocyte Esterase 1+ H NEGATIVE Urine RBC (Auto) NEGATIVE NEGATIVE Urine RBC NONE /HPF Urine WBC 0-2 /HPF Urine Crystals PRESENT H /LPF Urine Calcium Oxalate Crystals LARGE H /LPF Urine Bacteria NEGATIVE /HPF Urine Casts NONE /LPF Urine Mucus NEGATIVE /LPF Urine Culture Indicated NO Urine Opiates Screen NEGATIVE NEGATIVE Urine Oxycodone Screen NEGATIVE NEGATIVE Urine Methadone Screen NEGATIVE NEGATIVE Urine Propoxyphene Screen NEGATIVE NEGATIVE Urine Barbiturates Screen NEGATIVE NEGATIVE Ur Tricyclic Antidepressants Screen NEGATIVE NEGATIVE Urine Phencyclidine Screen NEGATIVE NEGATIVE Urine Amphetamines Screen POSITIVE H NEGATIVE Urine Methamphetamines Screen POSITIVE H NEGATIVE Urine Benzodiazepines Screen NEGATIVE NEGATIVE Urine Cocaine Screen NEGATIVE NEGATIVE Urine Cannabinoids Screen POSITIVE H NEGATIVE Phosphorus Level 2.1 L 2.3-4.7 MG/DL Magnesium Level 2.0 1.8-2.4 MG/DL Radiology Right hand x-ray 05/27/17: IMPRESSION: There appear be some destructive changes about the distal interphalangeal joint of likely the ring finger with associated soft tissue swelling. Given the overall appearance, the possibility of underlying osteomyelitis would be difficult to exclude. Correlation with findings. Physical Exam-(CHC) Physical Exam Vital Signs VS - Last 72 Hours, by Label 05/27/17 05/27/17 05/27/17 05/27/17 16:13 21:10 21:30 22:00 Temp 101.9 98.6 99.6 Pulse 78 74 62 64 Resp 20 20 16 20 B/P (MAP) 123/77 120/79 116/72 Pulse Ox 97 98 90 97 O2 Delivery Room Air Room Air 05/27/17 05/28/17 05/28/17 05/28/17 23:00 00:00 00:00 00:00 Temp 100.4 Pulse 82 77 Resp 21 21 B/P (MAP) 121/73 121/77 Pulse Ox 100 100 99 O2 Delivery Room Air Room Air Room Air 11/16/05/28/17 05/28/17 05/28/17 01:00 01:00 02:00 03:00 Pulse 94 83 90 102 Resp 20 26 23 B/P (MAP) 118/75 122/78 119/75 Pulse Ox 100 98 99 O2 Delivery Room Air Room Air Room Air 05/28/17 05/28/17 05/28/17 05/28/17 04:00 04:00 04:00 05:00 Temp 100.0 Pulse 101 93 Resp 16 30 B/P (MAP) 113/68 133/82 Pulse Ox 99 100 99 O2 Delivery Room Air Room Air Room Air 05/28/17 05/28/17 05/28/17 05/28/17 06:00 07:00 07:00 08:00 Pulse 104 93 94 90 Resp 27 31 28 B/P (MAP) 139/93 123/85 Pulse Ox 98 98 100 O2 Delivery Room Air Room Air Room Air 05/28/17 05/28/17 05/28/17 05/28/17 08:00 08:00 10:00 11:00 Temp 100.1 Pulse 91 92 Resp 24 24 B/P (MAP) 130/77 Pulse Ox 99 100 100 O2 Delivery Room Air Room Air Room Air 05/28/17 05/28/17 05/28/17 05/28/17 11:33 12:00 12:00 12:00 Temp 101.0 101.0 Pulse 98 Resp 25 B/P (MAP) 112/60 Pulse Ox 99 100 O2 Delivery Room Air Room Air 05/28/17 05/28/17 05/28/17 05/28/17 13:00 13:00 13:33 13:35 Temp 97.0 97.0 Pulse 75 85 Resp 24 B/P (MAP) 119/76 Pulse Ox 100 O2 Delivery Room Air 05/28/17 05/28/17 05/28/17 05/28/17 14:00 15:00 15:30 16:00 Temp 100.7 Pulse 89 97 92 Resp 19 13 20 B/P (MAP) 115/66 120/74 Pulse Ox 100 100 100 O2 Delivery Room Air Room Air Room Air 05/28/17 05/28/17 05/28/17 16:00 17:00 18:00 Pulse 93 90 Resp 26 26 Pulse Ox 98 100 100 O2 Delivery Room Air Room Air Room Air Capillary Refill : Less Than 3 Seconds General Appearance: no apparent distress, other (unkempt, dirt on hands) Respiratory: lungs clear, normal breath sounds Cardiovascular: regular rate, rhythm, no murmur Peripheral Pulses: 2+ Radial Pulses (R), 2+ Radial Pulses (L) Gastrointestinal: normal bowel sounds, non tender, soft Extremities: no pedal edema Neurologic/Psychiatric: alert, No aphasia, No facial droop, depressed affect Skin: cool, other (Right hand with swollen lesion over back of hand near opposite of thenar eminence with central ulceration, markedly ttp, with surrounding swelling and erythema, tender swollen area on third digit lateral side, excoriations and scabs on forearm) Clinical Quality Measures DVT/VTE Risk/Contraindication: Risk Factor Score Per Nursin RFS Level Per Nursing on Admit: 4+=Very High Assessment/Plan Assessment/Plan Admission Dx Methamphetamine intoxication Fever Cellulitis Plan Methamphetamine intoxication -Supportive care, sedation as needed for agitation -Patient with history of injection drug use and asking about HIV, ordered Fever -due to methamphetamine intoxication versus infection as noted below -CXR without evidence of pneumonia, influenza negative, urine without evidence of UTI Cellulitis with sepsis- febrile, elevated WBC. No evidence of severe sepsis/end organ damage with normal lactic acid and BP, remainder of labs unremarkable as well -concern for underlying osteomyelitis- MRI obtained which is concerning for right third DIP septic arthritis, Orthopedic Surgery consulted -Allergic to PCN- treating with clindamycin, vancomycin and ceftriaxone -Blood cultures pending DVT ppx- SCDs, will wait for Ortho recommendations before starting enoxaparin in case of need for procedure JYOTI HATHAWAY MD May 28, 2017 18:31
[2017-05-28] MEDS: VANCOMYCIN INJECTION 1,250 MG in NS (IVPB) 250 ML IV SCH (22:13)
[2017-05-29] VITALS (16 sets, daily range): BP systolic 114–176; BP diastolic 61–90
[2017-05-29] MEDS: CLINDAMYCIN 600 MG/NS 50 ML IVPB IV SCH ×10 (00:41→23:38)
[2017-05-29 05:11] LABS: BASOPHILS % (AUTO) 0 % (0-10); EOSINOPHILS # (AUTO) 0.1 10^3/uL (0.0-0.3); EOSINOPHILS % (AUTO) 2 % (0-10); LYMPHOCYTES # (AUTO) 1.8 X 10^3 (1.0-4.0); LYMPHOCYTES % (AUTO) 20 % (12-44); MEAN CORPUSCULAR HEMOGLOBIN 32 PG (25-34); MEAN CORPUSCULAR HGB CONC 33 G/DL (32-36); MEAN CORPUSCULAR VOLUME 97 FL (80-99); MEAN PLATELET VOLUME 9.5 FL (7.4-10.4); MONOCYTES # (AUTO) 1.2 X 10^3 (0.0-1.0); MONOCYTES % (AUTO) 13 % (0-12); NEUTROPHILS # (AUTO) 5.8 X 10^3 (1.8-7.8); NEUTROPHILS % (AUTO) 66 % (42-75); PLATELET COUNT 236 10^3/uL (130-400); RED BLOOD COUNT 3.75 10^6/uL (4.35-5.85); RED CELL DISTRIBUTION WIDTH 14.1 % (10.0-14.5); WHITE BLOOD COUNT 8.9 10^3/uL (4.3-11.0)
[2017-05-29 05:32] LABS: ANION GAP 8 MMOL/L (5-14); BLOOD UREA NITROGEN 10 MG/DL (7-18); BUN/CREATININE RATIO 15; CALCIUM 8.1 MG/DL (8.5-10.1); CARBON DIOXIDE 22 MMOL/L (21-32); CHLORIDE 107 MMOL/L (98-107); CREATININE SERUM 0.65 MG/DL (0.60-1.30); GFR ESTIMATED > 60; GLUCOSE 115 MG/DL (70-105); MAGNESIUM 1.9 MG/DL (1.8-2.4); PHOSPHORUS 2.3 MG/DL (2.3-4.7); POTASSIUM 3.6 MMOL/L (3.6-5.0); SODIUM 137 MMOL/L (135-145)
[2017-05-29] MEDS ORDERED: KCL 20 MEQ TAB (K-DUR) PO SCH (06:00)
[2017-05-29] MEDS ORDERED: TROUGH ORDER-PHARMACY XX NR (06:00)
[2017-05-29] MEDS ORDERED: POTASSIUM CL 10MEQ/50ML IVPB 50 ML IV SCH (06:00)
[2017-05-29] MEDS ORDERED: MAGNESIUM 1 GM/100 ML IVPB 100 ML IV SCH (06:00)
--- NOTE | 2017-05-29 06:59 | Diagnostic Imaging Report ---
INDICATION: Shortness of breath Portable chest 5:35 AM Heart and mediastinum are normal. Lungs are clear. There are no effusions or pneumothoraces. IMPRESSION: Negative chest Dictated by: Dictated on workstation # [id number]
[2017-05-29] MEDS: CATHETER FLUSH 10 ML SYR IV SCH ×3 (07:22→19:59)
[2017-05-29] MEDS ORDERED: KCL 20 MEQ TAB (K-DUR) PO ONE (07:30)
[2017-05-29] MEDS: VANCOMYCIN INJECTION 1,250 MG in NS (IVPB) 250 ML IV SCH (07:33)
[2017-05-29] MEDS: NS IV 1000 ML 1,000 ML IV SCH ×3 (09:13→21:06)
[2017-05-29] MEDS: cefTRIAXone INJECTION 1,000 MG in NS (IVPB) 50 ML IV SCH (09:19)
--- NOTE | 2017-05-29 14:06 | Progress Note (SOAP) ---
Subjective Subjective/Events-last exam Febrile to Tmax of 101. He is more alert this morning and states he is feeling okay except for the swelling in his hand. He states that he came to the hospital because [facility] and the mayor told him to come here or he would call the police. Review of Systems Date Seen by Provider: May 29, 2017 Time Seen by Provider: 10:30 Objective Exam Last Set of Vital Signs Vital Signs Date Time Temp Pulse Resp B/P (MAP) Pulse Ox O2 Delivery O2 Flow Rate FiO2 05/29/17 12:40 98.8 101 18 128/81 97 Room Air Capillary Refill : Less Than 3 Seconds I&O Intake and Output 05/30/17 00:00 Intake Total 1144 ml Output Total 2600 ml Balance -1456 ml Intake Oral 1090 ml IV Total 54 ml Output Urine Total 2600 ml General: Alert, No Acute Distress, Other (oriented to self, location and month/ year but not date) Lungs: Clear to Auscultation Heart: Regular Rate, No Murmurs Abdomen: Normal Bowel Sounds, Soft Skin: Other (edematous right hand with mild erythema over thenar eminance on dorsum, ttp) Neuro: Normal Speech Results/Procedures Lab Laboratory Tests 05/29/17 04:45: White Blood Count 8.9, Red Blood Count 3.75L, Hemoglobin 12.1L, Hematocrit 36L, Mean Corpuscular Volume 97, Mean Corpuscular Hemoglobin 32, Mean Corpuscular Hemoglobin Concent 33, Red Cell Distribution Width 14.1, Platelet Count 236, Mean Platelet Volume 9.5, Neutrophils (%) (Auto) 66, Lymphocytes (%) (Auto) 20, Monocytes (%) (Auto) 13H, Eosinophils (%) (Auto) 2, Basophils (%) (Auto) 0, Neutrophils # (Auto) 5.8, Lymphocytes # (Auto) 1.8, Monocytes # (Auto) 1.2H, Eosinophils # (Auto) 0.1, Basophils # (Auto) 0.0, Sodium Level 137, Potassium Level 3.6, Chloride Level 107, Carbon Dioxide Level 22, Anion Gap 8, Blood Urea Nitrogen 10, Creatinine 0.65, Estimat Glomerular Filtration Rate > 60, BUN/ Creatinine Ratio 15, Glucose Level 115H, Calcium Level 8.1L, Phosphorus Level 2.3, Magnesium Level 1.9 05/29/17 06:00: Vancomycin Level Trough 6.5L Microbiology 05/27/17 Blood Culture - Preliminary, Resulted No growth 05/27/17 Influenza Types A,B Antigen ([facility]) - Final, Complete Radiology Right hand x-ray 05/27/17: IMPRESSION: There appear be some destructive changes about the distal interphalangeal joint of likely the ring finger with associated soft tissue swelling. Given the overall appearance, the possibility of underlying osteomyelitis would be difficult to exclude. Correlation with findings. MRI Right hand 05/28/17: IMPRESSION: Findings suggestive of septic arthritis of the distal interphalangeal joint of the right ring finger with infection involving the distal one third of the middle phalanx and proximal two thirds of the distal phalanx around this joint. Assessment/Plan Assessment/Plan Plan Methamphetamine intoxication -Supportive care, sedation as needed for agitation -Patient with history of injection drug use and asking about HIV- checked this visit and negative 05/29 alert and oriented, not requiring sedation any longer Fever -due to methamphetamine intoxication versus infection as noted below -CXR without evidence of pneumonia, influenza negative, urine without evidence of UTI Cellulitis/Septic arthritis with sepsis- febrile, elevated WBC. No evidence of severe sepsis/end organ damage with normal lactic acid and BP, remainder of labs unremarkable as well -concern for underlying osteomyelitis- MRI obtained which is concerning for right third DIP septic arthritis, Orthopedic Surgery consulted -Allergic to PCN- treating with clindamycin, vancomycin and ceftriaxone -Blood cultures pending 05/29 per nursing, Orthopedic surgery agreed with antibiotics, no intervention that would be beneficial at this time DVT ppx- SCDs, enoxaparin Clinical Quality Measures DVT/VTE Risk/Contraindication: Risk Factor Score Per Nursin RFS Level Per Nursing on Admit: 4+=Very High JYOTI GABRIEL MD May 29, 2017 2:06 pm
[2017-05-29] MEDS: ENOXAPARIN 40 MG/0.4 ML (LOVENOX) SYR SC SCH (14:26)
[2017-05-29] MEDS: VANCOMYCIN 1 GM/NS 250 ML IVPB IV SCH ×2 (15:18)
[2017-05-30] VITALS: BP 115/40
[2017-05-30] MEDS: VANCOMYCIN 1 GM/NS 250 ML IVPB IV SCH ×4 (00:28→09:07)
[2017-05-30 04:00] VITALS: BP 128/68
[2017-05-30] MEDS: CATHETER FLUSH 10 ML SYR IV SCH ×4 (05:13→20:19)
[2017-05-30] MEDS: CLINDAMYCIN 600 MG/NS 50 ML IVPB IV SCH ×8 (05:13→23:57)
[2017-05-30 05:58] LABS: BASOPHILS % (AUTO) 0 % (0-10); EOSINOPHILS # (AUTO) 0.2 10^3/uL (0.0-0.3); EOSINOPHILS % (AUTO) 3 % (0-10); LYMPHOCYTES # (AUTO) 1.6 X 10^3 (1.0-4.0); LYMPHOCYTES % (AUTO) 25 % (12-44); MEAN CORPUSCULAR HEMOGLOBIN 32 PG (25-34); MEAN CORPUSCULAR HGB CONC 33 G/DL (32-36); MEAN CORPUSCULAR VOLUME 98 FL (80-99); MEAN PLATELET VOLUME 9.8 FL (7.4-10.4); MONOCYTES # (AUTO) 0.7 X 10^3 (0.0-1.0); MONOCYTES % (AUTO) 10 % (0-12); NEUTROPHILS # (AUTO) 3.9 X 10^3 (1.8-7.8); NEUTROPHILS % (AUTO) 61 % (42-75); PLATELET COUNT 231 10^3/uL (130-400); RED BLOOD COUNT 3.61 10^6/uL (4.35-5.85); RED CELL DISTRIBUTION WIDTH 14.2 % (10.0-14.5); WHITE BLOOD COUNT 6.3 10^3/uL (4.3-11.0)
[2017-05-30 06:24] LABS: ALANINE AMINOTRANSFERASE 26 U/L (0-55); ALBUMIN 2.9 GM/DL (3.2-4.5); ANION GAP 8 MMOL/L (5-14); ASPARTATE AMINO TRANSFERASE 21 U/L (5-34); BILIRUBIN,TOTAL 0.2 MG/DL (0.1-1.0); BLOOD UREA NITROGEN 9 MG/DL (7-18); BUN/CREATININE RATIO 14; CARBON DIOXIDE 19 MMOL/L (21-32); CHLORIDE 113 MMOL/L (98-107); CREATININE SERUM 0.66 MG/DL (0.60-1.30); GFR ESTIMATED > 60; GLUCOSE 122 MG/DL (70-105); POTASSIUM 4.1 MMOL/L (3.6-5.0); SODIUM 140 MMOL/L (135-145); TOTAL PROTEIN 5.8 GM/DL (6.4-8.2)
[2017-05-30] MEDS: NS IV 1000 ML 1,000 ML IV SCH (07:40)
[2017-05-30 08:00] VITALS: BP 160/52
[2017-05-30] MEDS: cefTRIAXone INJECTION 1,000 MG in NS (IVPB) 50 ML IV SCH (10:42)
[2017-05-30 11:59] VITALS: BP 143/75
[2017-05-30] MEDS: ENOXAPARIN 40 MG/0.4 ML (LOVENOX) SYR SC SCH ×2 (14:04→14:10)
[2017-05-30] MEDS ORDERED: TROUGH ORDER-PHARMACY XX NR (15:00)
[2017-05-30] MEDS: VANCOMYCIN 1250 MG/NS 250 ML IVPB IV SCH ×2 (16:12)
[2017-05-30] MEDS: CATHETER FLUSH 10 ML SYR IV PRN (16:13)
[2017-05-30 16:41] VITALS: BP 152/74
--- NOTE | 2017-05-30 18:50 | Progress Note (SOAP) ---
Subjective Subjective/Events-last exam Pt reports continued swelling to the R hand. Wants IVF stopped. Requests heartburn medication. Review of Systems Date Seen by Provider: May 30, 2017 Time Seen by Provider: 13:10 Objective Exam Last Set of Vital Signs Vital Signs Date Time Temp Pulse Resp B/P (MAP) Pulse Ox O2 Delivery O2 Flow Rate FiO2 05/30/17 16:41 97.3 96 17 152/74 98 Room Air Capillary Refill : Less Than 3 Seconds I&O Intake and Output 05/31/17 00:00 Intake Total 4638.5 ml Output Total 2400 ml Balance 2238.5 ml Intake Oral 2140 ml IV Total 2498.5 ml Output Urine Total 2400 ml # Bowel Movements 1 General: Alert, Oriented X3 Extremities: Other (Swelling to the R hand) Results/Procedures Lab Laboratory Tests 05/30/17 05:10: White Blood Count 6.3, Red Blood Count 3.61L, Hemoglobin 11.5L, Hematocrit 35L, Mean Corpuscular Volume 98, Mean Corpuscular Hemoglobin 32, Mean Corpuscular Hemoglobin Concent 33, Red Cell Distribution Width 14.2, Platelet Count 231, Mean Platelet Volume 9.8, Neutrophils (%) (Auto) 61, Lymphocytes (%) (Auto) 25, Monocytes (%) (Auto) 10, Eosinophils (%) (Auto) 3, Basophils (%) (Auto) 0, Neutrophils # (Auto) 3.9, Lymphocytes # (Auto) 1.6, Monocytes # (Auto) 0.7, Eosinophils # (Auto) 0.2, Basophils # (Auto) 0.0, Sodium Level 140, Potassium Level 4.1, Chloride Level 113H, Carbon Dioxide Level 19L, Anion Gap 8, Blood Urea Nitrogen 9, Creatinine 0.66, Estimat Glomerular Filtration Rate > 60, BUN/ Creatinine Ratio 14, Glucose Level 122H, Calcium Level 8.0L, Total Bilirubin 0.2 , Aspartate Amino Transf (AST/SGOT) 21, Alanine Aminotransferase (ALT/SGPT) 26, Alkaline Phosphatase 44, Total Protein 5.8L, Albumin 2.9L 05/30/17 15:17: Vancomycin Level Trough 8.7L Microbiology 05/27/17 Blood Culture - Preliminary, Resulted No growth 05/27/17 Influenza Types A,B Antigen ([facility]) - Final, Complete Radiology Right hand x-ray 05/27/17: IMPRESSION: There appear be some destructive changes about the distal interphalangeal joint of likely the ring finger with associated soft tissue swelling. Given the overall appearance, the possibility of underlying osteomyelitis would be difficult to exclude. Correlation with findings. MRI Right hand 05/28/17: IMPRESSION: Findings suggestive of septic arthritis of the distal interphalangeal joint of the right ring finger with infection involving the distal one third of the middle phalanx and proximal two thirds of the distal phalanx around this joint. Assessment/Plan Assessment/Plan Plan Methamphetamine intoxication -Supportive care, sedation as needed for agitation -Patient with history of injection drug use and asking about HIV- checked this visit and negative 05/29 alert and oriented, not requiring sedation any longer Fever -due to methamphetamine intoxication versus infection as noted below -CXR without evidence of pneumonia, influenza negative, urine without evidence of UTI Cellulitis/Septic arthritis with sepsis- febrile, elevated WBC. No evidence of severe sepsis/end organ damage with normal lactic acid and BP, remainder of labs unremarkable as well -concern for underlying osteomyelitis- MRI obtained which is concerning for right third DIP septic arthritis, Orthopedic Surgery consulted -Allergic to PCN- treating with clindamycin, vancomycin and ceftriaxone -Blood cultures pending 05/29 per nursing, Orthopedic surgery agreed with antibiotics, no intervention that would be beneficial at this time 05/30 - continue IV antibiotics, when clinically improved will change to po DVT ppx- SCDs, enoxaparin Clinical Quality Measures DVT/VTE Risk/Contraindication: Risk Factor Score Per Nursin RFS Level Per Nursing on Admit: 4+=Very High SHAJI WOODARD DO May 30, 2017 18:50
[2017-05-30 19:52] VITALS: BP 143/90
[2017-05-30] MEDS: FAMOTIDINE 20 MG (PEPCID) TABLET PO SCH (20:18)
[2017-05-31] VITALS: BP 127/61
[2017-05-31] MEDS: CATHETER FLUSH 10 ML SYR IV SCH ×6 (00:19→20:55)
[2017-05-31] MEDS: VANCOMYCIN 1250 MG/NS 250 ML IVPB IV SCH ×6 (00:27→15:27)
[2017-05-31] MEDS: CLINDAMYCIN 600 MG/NS 50 ML IVPB IV SCH ×8 (06:25→23:24)
[2017-05-31] MEDS: FAMOTIDINE 20 MG (PEPCID) TABLET PO SCH ×2 (08:00→20:55)
[2017-05-31] MEDS: CATHETER FLUSH 10 ML SYR IV PRN ×3 (08:00→11:19)
[2017-05-31 08:37] VITALS: BP 128/69
[2017-05-31] MEDS: cefTRIAXone INJECTION 1,000 MG in NS (IVPB) 50 ML IV SCH (10:36)
--- NOTE | 2017-05-31 12:15 | Progress Note (SOAP) ---
Subjective Subjective/Events-last exam Pt has been afebrile for 24. Reports swelling is starting to decrease slightly in hand. Review of Systems Date Seen by Provider: May 31, 2017 Time Seen by Provider: 08:25 Objective Exam Last Set of Vital Signs Vital Signs Date Time Temp Pulse Resp B/P (MAP) Pulse Ox O2 Delivery O2 Flow Rate FiO2 05/31/17 08:37 97.5 84 18 128/69 99 Room Air Capillary Refill : Less Than 3 Seconds I&O Intake and Output 06/01/17 00:00 Intake Total 904 ml Output Total 1000 ml Balance -96 ml Intake Oral 850 ml IV Total 54 ml Output Urine Total 1000 ml General: Alert, Oriented X3, Cooperative Extremities: Other (mild improvement in swelling to the R hand) Results/Procedures Lab Laboratory Tests 05/30/17 15:17: Vancomycin Level Trough 8.7L Microbiology 05/27/17 Blood Culture - Preliminary, Resulted No growth 05/27/17 Influenza Types A,B Antigen ([facility]) - Final, Complete Radiology Right hand x-ray 05/27/17: IMPRESSION: There appear be some destructive changes about the distal interphalangeal joint of likely the ring finger with associated soft tissue swelling. Given the overall appearance, the possibility of underlying osteomyelitis would be difficult to exclude. Correlation with findings. MRI Right hand 05/28/17: IMPRESSION: Findings suggestive of septic arthritis of the distal interphalangeal joint of the right ring finger with infection involving the distal one third of the middle phalanx and proximal two thirds of the distal phalanx around this joint. Assessment/Plan Assessment/Plan Plan Methamphetamine intoxication -Supportive care, sedation as needed for agitation -Patient with history of injection drug use and asking about HIV- checked this visit and negative 05/29 alert and oriented, not requiring sedation any longer Fever -due to methamphetamine intoxication versus infection as noted below -CXR without evidence of pneumonia, influenza negative, urine without evidence of UTI 05/31/17 - afebrile x24h Cellulitis/Septic arthritis with sepsis- febrile, elevated WBC. No evidence of severe sepsis/end organ damage with normal lactic acid and BP, remainder of labs unremarkable as well -concern for underlying osteomyelitis- MRI obtained which is concerning for right third DIP septic arthritis, Orthopedic Surgery consulted -Allergic to PCN- treating with clindamycin, vancomycin and ceftriaxone -Blood cultures pending 11/17 per nursing, Orthopedic surgery agreed with antibiotics, no intervention that would be beneficial at this time 05/30 - continue IV antibiotics, when clinically improved will change to po 05/31 - beginning to improve. Consider change to po antibiotics tomorrow and DC. DVT ppx- SCDs, enoxaparin Clinical Quality Measures DVT/VTE Risk/Contraindication: Risk Factor Score Per Nursin RFS Level Per Nursing on Admit: 4+=Very High SHAJI WOODARD DO May 31, 2017 12:15
[2017-05-31] MEDS: ENOXAPARIN 40 MG/0.4 ML (LOVENOX) SYR SC SCH (13:46)
[2017-05-31 16:00] VITALS: BP 128/89
[2017-06-01] VITALS: BP 155/69
[2017-06-01] MEDS: VANCOMYCIN 1250 MG/NS 250 ML IVPB IV SCH ×4 (00:02→07:57)
[2017-06-01] MEDS: CATHETER FLUSH 10 ML SYR IV SCH ×2 (05:07)
[2017-06-01] MEDS: CLINDAMYCIN 600 MG/NS 50 ML IVPB IV SCH ×2 (05:07)
[2017-06-01] MEDS ORDERED: TROUGH ORDER-PHARMACY XX NR (07:00)
[2017-06-01] MEDS: FAMOTIDINE 20 MG (PEPCID) TABLET PO SCH (07:56)
[2017-06-01 08:00] VITALS: BP 144/65
[2017-06-01] MEDS: cefTRIAXone INJECTION 1,000 MG in NS (IVPB) 50 ML IV SCH (10:08)
[2017-06-01] MEDS ORDERED: CLIN150C17 PO (11:12)
--- NOTE | 2017-06-01 11:15 | Discharge Instructions ---
Discharge [facility] Discharge Medications New, Converted or Re-Newed RX: Transmitted to Pharmacy New Medications: Clindamycin HCl (Clindamycin HCl) 150 Mg Capsule 450 MG PO TID for 7 Days, #63 CAP 0 Refills Patient Instructions Goal/Follow Up Appt: You declined a follow up appointment while in hospital. If this changes, please call [phone] to schedule an appointment. Patient Instructions: 1. please take all antibiotics as prescribed. this infection could worsen and go to the bone if you do not. 2. [facility] an [facility]. Please call [phone] if you want to make an appointment. Return to The Hospital For: fever, chills, increased redness or swelling in hand Activity & Diet Discharge Diet: No Restrictions Activity as Tolerated: Yes Copy Copies To 1: HUE NIETO MD, JULIE A MD Jun 01, 2017 11:10 am
--- NOTE | 2017-06-01 11:15 | Discharge Summary ---
Diagnosis/Chief Complaint Date of Admission May 27, 2017 at 8:04 pm Date of Discharge June 01, 2017 Admission Diagnosis Admission Diagnosis SEE BELOW Discharge Diagnosis Methamphetamine intoxication -Supportive care, sedation as needed for agitation -Patient with history of injection drug use and asking about HIV- checked this visit and negative 05/29 alert and oriented, not requiring sedation any longer DISCHARGE: Patient adamantly declines need for addiction treatment services. Fever -due to methamphetamine intoxication versus infection as noted below -CXR without evidence of pneumonia, influenza negative, urine without evidence of UTI 05/31/17 - afebrile x24h DIS: has been afebrile x 48h Cellulitis/Septic arthritis with sepsis- febrile, elevated WBC. No evidence of severe sepsis/end organ damage with normal lactic acid and BP, remainder of labs unremarkable as well -concern for underlying osteomyelitis- MRI obtained which is concerning for right third DIP septic arthritis, Orthopedic Surgery consulted -Allergic to PCN- treating with clindamycin, vancomycin and ceftriaxone -Blood cultures pending 05/29 per nursing, Orthopedic surgery agreed with antibiotics, no intervention that would be beneficial at this time 05/30 - continue IV antibiotics, when clinically improved will change to po 05/31 - beginning to improve. Consider change to po antibiotics tomorrow and DC. DIS - showed marked improvement today. will dc on clindamycin. patient was somewhat argumentative with me, refused a follow up appointment stating he "wouldn't go anyways." I strongly urged him to fill the antibiotics and take them, which he verbally agreed to do. Chief Complaint/HPI Chief Complaint/HPI 36 yo male brought to ER with altered mental status. He awakens to answer questions this morning, but his answers are not all logical. 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 He does admit to substance use including methamphetamine a "couple of days ago" and injection use in his left forearm, but states he has not injected in his hand where he does have a swollen, sore wound. He does state he is not interested in rehab because "it ruins his life". When asked about his home, he states he has no home, but also can't remember where he has been staying. Discharge Summary-Simple/Stand Consultations Discharge Physical Examination Allergies: Coded Allergies: Penicillins (Unverified Allergy, Severe, HIVES, 11/29/10) fish derived (Unverified Allergy, Intermediate, HIVES, 05/28/17) FROM UNCODED ALLERGIES Vitals & I&Os Vital Sign - Last 12Hours Date Time Temp Pulse Resp B/P (MAP) Pulse Ox O2 Delivery O2 Flow Rate FiO2 06/01/17 08:00 98.9 86 16 144/65 99 Room Air General Appearance: Alert, Oriented X3, Cooperative, No Acute Distress Respiratory: Clear to Auscultation, Normal Air Movement Cardiovascular: Regular Rate, Normal S1, Normal S2, No Murmurs, Gallops, Rubs Abdominal: Normal Bowel Sounds, Soft, No Tenderness, No Hepatosplenomegaly, No Masses Skin: Other (right hand has no erythema, edema has improved) Neuro: Normal Speech, Strength at 5/5 X4 Ext, Normal Tone, Cranial Nerves 3-12 NL Psych/Mental Status: Mental Status NL, Mood NL Hospital Course See final discharge diagnosis. Radiology Reviewed Right hand x-ray 05/27/17: IMPRESSION: There appear be some destructive changes about the distal interphalangeal joint of likely the ring finger with associated soft tissue swelling. Given the overall appearance, the possibility of underlying osteomyelitis would be difficult to exclude. Correlation with findings. MRI Right hand 05/28/17: IMPRESSION: Findings suggestive of septic arthritis of the distal interphalangeal joint of the right ring finger with infection involving the distal one third of the middle phalanx and proximal two thirds of the distal phalanx around this joint. Discharge Instructions to patient/family Please see electronic discharge instructions given to patient. Discharge Medications Reviewed and agree with Discharge Medication list on patient's Discharge Instruction sheet Clinical Quality Measures DVT/VTE Risk/Contraindication: Risk Factor Score Per Nursin RFS Level Per Nursing on Admit: 4+=Very High Copy Copies To 1: HUE NIETO MD, JULIE A MD Jun 01, 2017 11:15
[2017-06-01 11:30] VITALS: BP 144/65
[2017-06-01] MEDS ORDERED: VANCOMYCIN INJECTION 1,500 MG in NS IV 500 ML 500 ML IV SCH (16:00)
[2017-06-02] MEDS ORDERED: TROUGH ORDER-PHARMACY XX NR (15:00)
== END 2017-06-01 11:50 | disposition home or self-care (01) | DRG 872 ==
LOC: EDUNIT# 14:55 → ER 14:59 → ICU 20:04 → 4TH 05-29 12:40
PROVIDERS: ADMIT Family Medicine; ATTEND Family Medicine
DX: A41.9 Sepsis, unspecified organism (principal); M86.9 Osteomyelitis, unspecified; R41.0 Disorientation, unspecified; F15.129 Other stimulant abuse with intoxication, unspecified; F17.210 Nicotine dependence, cigarettes, uncomplicated; L03.113 Cellulitis of right upper limb; M00.9 Pyogenic arthritis, unspecified
CPT/HCPCS: 36415; 71010; 73130; 73220; 80048; 80053; 80202; 80306; 80320; 81000; 83605; 83735; 84100; 85025; 86141; 86703; 87040; 87804; 93041; 96374; 96375